=== PATIENT | male | born 1975 | race Two or more races ===

== ENCOUNTER 2023-06-17 05:56 | Day surgery (SDC) | payer OTHER ==
[~2023-06-17 05:56] MED LIST: ZESTRIL2.5 MG PO
== END 2023-06-17 18:05 | disposition home or self-care (01) ==
LOC: CIR.AMB 05:56
PROVIDERS: ATTEND Colon & Rectal Surgery
DX: D12.9 Benign neoplasm of anus and anal canal (principal); K64.8 Other hemorrhoids; K64.4 Residual hemorrhoidal skin tags; Z86.010 Personal history of colon polyps; Z20.822 Contact with and (suspected) exposure to COVID-19